=== PATIENT | female | born 1955 | race Caucasian/White ===

== ENCOUNTER 2025-01-30 23:49 | Emergency (ER) | payer MEDICARE ==
[~2025-01-30] VITALS: Ht 162.6 cm; Wt 81.5 kg
[2025-01-31] MEDS: MORPHINE 4 MG/ML 1 ML VIAL IV ONE (00:11)
[2025-01-31] MEDS: ONDANSETRON 4MG 2ML VIAL IV ONE (00:12)
[2025-01-31 01:00] LABS: BASO # 0.1 10^3/uL (0.0-0.2); BASO % 1.2 % (0.0-1.0); EOS # 0.1 10^3/uL (0.0-0.5); EOS % 1.5 % (0.0-3.0); LYMPH # 2.5 10^3/uL (1.5-5.0); LYMPH % 29.0 % (24.0-44.0); MONO # 0.7 10^3/uL (0.0-0.8); MONO % 7.5 % (2.0-8.0); NEUTROPHILS # 5.3 10^3/uL (1.5-8.5); NEUTROPHILS % 60.5 % (36.0-66.0); PLATELET COUNT, AUTOMATED 238 10^3/uL (150-450)
[2025-01-31 01:03] LABS: ETHYL ALCOHOL (ETHANOL) 0.251 % (0.000-0.010)
[2025-01-31 01:05] LABS: CALCIUM LEVEL 8.1 MG/DL (8.3-10.6); CARBON DIOXIDE LEVEL 20 MMOL/L (20-31); CHLORIDE LEVEL 99 MMOL/L (98-107); CREATININE FOR GFR 0.62 MG/DL (0.55-1.30); GLOMERULAR FILTRATION RATE > 90.0 (>45); POTASSIUM SERUM 4.9 MMOL/L (3.5-5.1); SODIUM LEVEL 135 MMOL/L (136-145)
[2025-01-31] MEDS ORDERED: MORPHINE 4 MG/ML 1 ML VIAL IV PRN (01:05)
[2025-01-31 01:30] LABS: INR 4.28
[2025-01-31] MEDS: LIDOCAINE W/EPINEPHrine 1% 20 ML VIAL SC ONE (01:53)
[2025-01-31] MEDS: BOOSTRIX VACCINE (TETANUS/DIPHTH/ACEL. PERTUSSIS) 0.5 ML SYR IM ONE (01:54)
[2025-01-31 02:34] VITALS: TEMP 97.9
[2025-01-31 03:39] VITALS: BP 139/74; O2SAT 95
== END 2025-01-31 03:40 | disposition home or self-care (01) ==
LOC: M ED 23:49 → EDBD 23:49 → M ED 01-31 03:40
DX: S81.812A Laceration without foreign body, left lower leg, initial encounter (principal); W10.9XXA Fall (on) (from) unspecified stairs and steps, initial encounter; Y92.9 Unspecified place or not applicable; Y93.9 Activity, unspecified; Y99.9 Unspecified external cause status; R79.1 Abnormal coagulation profile; M47.812 Spondylosis without myelopathy or radiculopathy, cervical region; I10 Essential (primary) hypertension; Z88.8 Allergy status to other drugs, medicaments and biological substances
CPT/HCPCS: 12004; 70450; 72125; 73030; 73590; 80048; 82077; 85025; 85610; 85730; 90471; 90715; 96374; 96375; 99284; J0665; J2405